=== PATIENT | male | born 1955 | race Caucasian/White ===

== ENCOUNTER 2021-08-13 08:00 | Outpatient (CLI) | payer MEDICARE ==
--- NOTE | 2021-08-13 21:08 | XRAY Report ---
PROCEDURE: Forearm LT INDICATIONS: LEFT FOREARM WOUND WITH FB TECHNIQUE: 2 views of the forearm were acquired. COMPARISON: None FINDINGS: Bones: No fractures or dislocations. No suspicious bony lesions. Soft tissues: No suspicious soft tissue calcifications or masses. 9 mm hyperdense foreign body in th e dorsal soft tissues of the mid to distal forearm between the radius and ulna. IMPRESSION: 1. Single radiodense fragment within the dorsal soft tissues. No underlying bone injury. Reviewed by: Yesenia Eldridge MD on 08/13/2021 9:07 PM PDT Approved by: Yesenia Eldridge MD on 08/13/2021 9:07 PM PDT Station ID: [id number]
== END 2021-08-13 23:59 | disposition home or self-care (01) ==
LOC: DI.S 08:00
PROVIDERS: ATTEND Emergency Medicine
DX: S51.842A Puncture wound with foreign body of left forearm, initial encounter (principal)